=== PATIENT | female | born 1975 | race Caucasian/White ===

== ENCOUNTER 2016-04-26 05:40 | Day surgery (SDC) | payer BC ==
[2016-04-26] VITALS (7 sets, daily range): BP systolic 115–143; BP diastolic 57–90
[~2016-04-26] VITALS: Ht 167.6 cm; Wt 74.4 kg
[~2016-04-26 05:40] MED LIST: ADVIL,NUPRIN,M200 MG PO; CHROMAGEN,1 CAPSULE PO; ENDOCET 5-3251 EACH PO; FLINTSTONES1 TABLET PO; MELATONIN10 M5 PO; MOTRIN IB200 MG PO; Motrin PO; PERCOCET 5/31 TABLET PO; PRENATAL TABLE1 EAC3 PO; PRENATAL1 EACH PO; Percocet 5/325,Endoc PO; Protonix PO; TYLENOL EXTRA500 MG PO
[2016-04-26] MEDS ORDERED: NORCO 5/3251 TABLET PO (08:25)
[2016-04-26] MEDS ORDERED: PERCOCET 5/31 TABLET PO (09:54)
== END 2016-04-26 13:19 | disposition home or self-care (01) ==
LOC: SDC 05:40
PROC: 0FT44ZZ Resection of Gallbladder, Percutaneous Endoscopic Approach (ICD-10-PCS; principal; 2016-04-26)
DX: K80.10 Calculus of gallbladder with chronic cholecystitis without obstruction (principal); Z87.828 Personal history of other (healed) physical injury and trauma
CPT/HCPCS: 88304; 93005; 94640; J0131; J0330; J1100; J1200; J1885; J2250; J2405; J2710; J3010; S0028